=== PATIENT | female | born 1985 | race Caucasian/White ===

== ENCOUNTER 2018-10-10 12:59 | Day surgery (SDC) | payer OTHER ==
[~2018-10-10] VITALS: Ht 147.3 cm; Wt 48.4 kg
[2018-10-10] VITALS (13 sets, daily range): BP systolic 89–118; BP diastolic 58–74; PULSE 66–85; RESP 14–18; Ht 147.3 cm; Wt 48.4 kg
[~2018-10-10 12:59] MED LIST: FERR27TA PO; FLUT16SP17 NASAL; LACTATED RINGER'S 1,000 ML IV SCH; NORE-122 PO; PREN1TAB49 PO
--- NOTE | 2018-10-10 15:18 | HPN ---
Date/Time of Note Date/Time of Note DATE: 10/10/18 TIME: 15:18 Interval H&P Admission Note Pt. seen H&P reviewed: No system changes LAWANDA MORRISON MD Oct 10, 2018 15:18
[2018-10-10] MEDS ORDERED: BUPIVACAINE 0.25% (MPF) 30 ML INJ ONE (15:25)
--- NOTE | 2018-10-10 15:27 | PREAC ---
Date/Time of Note Date/Time of Note DATE: 10/10/18 TIME: 15:26 Anesthesia Eval and Record Evaluation Time Pre-Procedure Interview DATE: 10/10/18 TIME: 15:26 Age 32 Sex female NPO: 8 hrs Preoperative diagnosis VULVAR LESION Planned procedure WIDE LOCAL EXCISION OF VULVAR LESION Past Medical History Past Medical History: None Surgery & Anesthesia Issues No known issue Meds Anticoagulation: No Beta Mariaa within 24 hr: No Reason Beta Mariaa not given: Pt. not on B-Mariaa Reported Medications Norethindrone-E.estradiol-Iron ([place]isovi Fe 1-20 Tablet) 1 Each Tablet, 1 EACH PO DAILY, TAB 10/10/18 Fluticasone Propionate* (Fluticasone Propionate* Nasal) 50 Mcg/[place] - 16 Gm [place].susp, 2 SPRAYS NASAL DAILY, #1 BOTTLE TO EACH NOSTRIL 10/10/18 Discontinued Reported Medications Ferrous Sulfate (Iron) 1 Tab Tablet, 1 TAB PO DAILY 04/21/11 Vits W-Ca,Fe,Fa(<1MG) () 1 Tab Tablet, 1 TAB PO DAILY 04/21/11 Current Medications Lactated Ringer's 1,000 ml @ 25 mls/hr Q24H IV Last administered on 10/10/18at 13:55; Admin Dose 25 MLS/HR; Start 10/10/18 at 06:00; Stop 10/10/18 at 17:00 Meds reviewed: Yes Allergies Coded Allergies: No Known Allergy (Unverified , 10/10/18) Allergies Reviewed: Yes Labs/Studies Labs Reviewed: Reviewed by anesthesiologist Blood Bank Test 10/10/18 13:45 Antibody Screen NEGATIVE Blood Type O POSITIVE test: Negative Studies: ECG, CXR Pre-procedure Exam Last vitals Vital Signs Date Temp Pulse Resp B/P (MAP) Pulse Ox O2 O2 Flow FiO2 Time Delivery Rate 10/10/18 97.8 85 18 118/74 100 Room Air 14:22 (89) Airway: Adequate mouth opening Mallampati: Mallampati II Teeth: Normal Lung: Normal Heart: Normal ASA Physical Status ASA physical status: 1 Emergency: None Planned Anesthetic General/MAC: ETT Pre-operative Attestations Prior to commencing anesthesia and surgery, the patient was re-evaluated, there was verification of: *The patient's identity *The results of appropriate recent lab work and preoperative vital signs *The above evaluation not changing prior to induction *Anesthetic plan, risk benefits, alternative and complications discussed with patient/family; questions answered; patient/family understands, accepts and wish es to proceed. SHAISTA VELÁZQUEZ Oct 10, 2018 15:27
[2018-10-10] MEDS ORDERED: PROPOFOL 20 ML ONE (15:34)
[2018-10-10] MEDS ORDERED: CEFAZOLIN 1 GM INJ ONE (15:34)
[2018-10-10] MEDS ORDERED: MIDAZOLAM 1 MG/ML 2 ML INJ ONE (15:34)
[2018-10-10] MEDS ORDERED: FENTAnyl 50 MCG/ML VIAL ONE (15:34)
[2018-10-10] MEDS ORDERED: ONDANSETRON 4 MG INJ ONE (15:42)
[2018-10-10] MEDS ORDERED: KETOROLAC 30 MG INJ ONE (15:42)
[2018-10-10] MEDS ORDERED: METOCLOPRAMIDE 10 MG INJ ONE (15:42)
[2018-10-10] MEDS ORDERED: DEXAMETHASONE 4 MG/ML 5 ML INJ ONE (15:42)
[2018-10-10] MEDS ORDERED: ONDANSETRON 4 MG INJ IV PRN (16:00)
[2018-10-10] MEDS ORDERED: EPHEDrine 25 MG/5 ML SYG IV PRN (16:00)
[2018-10-10] MEDS ORDERED: FENTAnyl 50 MCG/ML VIAL IV PRN ×2 (16:00)
[2018-10-10] MEDS ORDERED: MEPERIDINE 25 MG INJ IV PRN (16:00)
[2018-10-10] MEDS ORDERED: OXYCODONE/ACETAMINOPHEN (5/325) TAB PO PRN (16:00)
[2018-10-10] MEDS ORDERED: HYDROmorphONE 1 MG/5 ML IV SYRINGE IV PRN ×2 (16:00)
[2018-10-10] MEDS ORDERED: METOCLOPRAMIDE 10 MG INJ IV PRN (16:00)
--- NOTE | 2018-10-10 16:15 | OPR ---
Date/Time of Note Date/Time of Note DATE: 10/10/18 TIME: 16:11 Operative Report Procedure Date: Oct 10, 2018 Preoperative Diagnosis Vulvar lesions Postoperative Diagnosis Same, pending final pathology Operation/Procedure Performed Wide local excision of right vulva Surgeon see signature line Retail Merchandiser None Anesthesia Type: general Anesthesiologist: DAVID MILLER MD Estimated Blood Loss: minimal Transfusion none Specimen Right upper and lower vulva Grafts/Implants none Complications none Pt Condition Post Procedure: stable Disposition: PACU Procedure Description multiple mm nodules in vulva. LAWANDA MORRISON MD Oct 10, 2018 16:15
--- NOTE | 2018-10-10 16:18 | DS ---
Date/Time of Note Date/Time of Note DATE: 10/10/18 TIME: 16:15 Discharge Summary Admission/Discharge Info Admit Date/Time 10-10-18 Discharge Date/Time 10-10-18 Discharge Diagnosis Vulvar lesions Patient Condition: Good Procedures Wide local excision of right vulvar lesions. Hospital Course Tolerated procedure. Prescription e-prescribed to [facility] on [address] in [place], [place] 5mg #10, Motrion 400 mg #30, Lidocaine 5% ointment. Home Meds Reported Medications Norethindrone-E.estradiol-Iron (Blisovi Fe 1-20 Tablet) 1 Each Tablet, 1 EACH PO DAILY, TAB 10/10/18 Fluticasone Propionate* (Fluticasone Propionate* Nasal) 50 Mcg/[place] - 16 Gm [place].susp, 2 SPRAYS NASAL DAILY, #1 BOTTLE TO EACH NOSTRIL 10/10/18 Discontinued Reported Medications Ferrous Sulfate (Iron) 1 Tab Tablet, 1 TAB PO DAILY 04/21/11 Vits W-Ca,Fe,Fa(<1MG) () 1 Tab Tablet, 1 TAB PO DAILY 04/21/11 Follow-up Plan See me in 1 week Primary Care Provider LAWADNA Meza MD Oct 10, 2018 16:18
--- NOTE | 2018-10-10 16:20 | PAC ---
Date/Time of Note Date/Time of Note DATE: 10/10/18 TIME: 16:20 Post-Anesthesia Notes Post-Anesthesia Note Last documented vital signs Vital Signs Date Temp Pulse Resp B/P (MAP) Pulse Ox O2 O2 Flow FiO2 Time Delivery Rate 10/10/18 97.8 85 18 118/74 100 Room Air 16:19 (89) Activity: WNL Respiratory function: WNL Cardiovascular function: WNL Mental status: Baseline Pain reasonably controlled: Yes Hydration appropriate: Yes Nausea/Vomiting absent: Yes DAVID MILLER MD Oct 10, 2018 16:20
--- NOTE | 2018-10-11 07:49 | OPR ---
DATE OF OPERATION: 10/10/2018 PREOPERATIVE DIAGNOSIS: Vulvar lesion. POSTOPERATIVE DIAGNOSIS: Vulvar lesion pending final pathology. OPERATION PERFORMED: Wide local excision of right vulva. SURGEON: Melia Bay MD DEVELOPER ADVISOR: No assistant corporation counsel. ANESTHESIA: General endotracheal. ESTIMATED BLOOD LOSS: Minimal. INTRAOPERATIVE FINDING: The patient had multiple mm nodules in her right labia majora mostly on the right and some on the left. Two separate excision were made on right upper and right lower labia majora. Specimens were sent for permanent section. HISTORY: This is a 32-year-old female who has multiple vulvar lesions. 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 There are multiple lesions. She was referred for evaluation. My plan for today will be to do more wide local excision to get more samples to establish a diagnosis. DESCRIPTION OF PROCEDURE: The patient taken to the OR after adequate anesthesia, the excision site was marked with the patient together. She underwent adequate general anesthesia, was prepped and draped in usual sterile fashion. The lesions were noted and there were marked. Right upper and right lower excision sites, elliptical incision and it is about 1.5 cm x 0.5 cm. Both upper and lower were excised using a 10 blade. Once the excision was performed, this area was then cauterized and was hemostatic, was irrigated and the defect was approximated using 3-0 Vicryl SH needle in an interrupted fashion. Prior to closure, about 10 mL of 0.5% Marcaine was injected for postop pain control. Once this was approximated, the patient was cleansed, placed back in supine position, extubated and transferred to the recovery room in stable condition. Dictated By: MELIA CHAUDHARI/YANET Conf#: [id number] DID#: [id number] [facility]
== END 2018-10-10 18:20 | disposition home or self-care (01) ==
LOC: SDS 12:59
PROVIDERS: ATTEND Obstetrics & Gynecology Gynecologic Oncology
DX: D28.0 Benign neoplasm of vulva (principal); R10.2 Pelvic and perineal pain
CPT/HCPCS: 11422; 84703; 86850; 86900; 86901; J0690; J1100; J1885; J2250; J2405; J2765; J3010; Z7512; Z7610; 88305